=== PATIENT | male | born 1945 | race Caucasian/White ===

== ENCOUNTER 2018-10-07 16:03 | Inpatient (IN) | payer MEDICARE ==
[~2018-10-07] VITALS: Ht 172.7 cm; Wt 115.3 kg
[2018-10-07] MEDS ORDERED: IPRATROPIUM BROMIDE 0.02% 2.5 ML NEB NEB STA (16:13)
[2018-10-07] MEDS ORDERED: METHYLPREDNISOLONE SOD SUCC 125 MG/2ML VIAL IV STA (16:13)
[2018-10-07] MEDS ORDERED: SODIUM CHLORIDE 0.9% 1000ML 1,000 ML IV STA (16:13)
[2018-10-07] MEDS ORDERED: LEVALBUTEROL HCL SOLN NEBU 1.25 MG/3 ML NEB INH ONE (16:15)
[2018-10-07] MEDS ORDERED: MORPHINE SULFATE 2 MG/ML SYR 1ML IV PRN (16:30)
[2018-10-07] MEDS ORDERED: ONDANSETRON HCL INJ 2MG/ML 2ML 2 MG/ML VIAL IV PRN (16:30)
[2018-10-07] MEDS ORDERED: ASPIRIN 81 MG CHEW TAB PO ONE (16:30)
--- NOTE | 2018-10-07 16:33 | NUR ---
Pt spouse states pt took 1 nitrosublingual last night and this am for CP., States CP stared yesterday.
[2018-10-07 16:36] LABS: BASOPHILS # (AUTO) 0.1 (0.0-0.1); BASOPHILS % 0.8 % (0.0-1.0); EOSINOPHILS # (AUTO) 0.4 (0.0-0.4); EOSINOPHILS % 5.3 % (0.0-6.0); HEMATOCRIT 44.2 % (38.2-49.6); HEMOGLOBIN 14.9 g/dL (14.0-18.0); LYMPHOCYTES # (AUTO) 1.2 (1.0-3.2); LYMPHOCYTES % 15.8 % (18.0-39.1); MEAN CORPUSCULAR HEMOGLOBIN 30.7 pg (28-32); MEAN CORPUSCULAR HGB CONC 33.7 g/dL (31-35); MEAN CORPUSCULAR VOLUME 91.1 fL (81-99); MONOCYTES # (AUTO) 0.7 (0.2-0.8); MONOCYTES % 9.3 % (4.4-11.3); NEUTROPHILS # (AUTO) 5.3 (2.1-6.9); NEUTROPHILS % 68.7 % (38.7-80.0); PLATELET COUNT 226 x10e3/uL (140-360); RED BLOOD COUNT 4.85 x10e6/uL (4.3-5.7); RED CELL DISTRIBUTION WIDTH 14.9 % (11.7-14.4)
[2018-10-07 16:49] LABS: INR 1.11; PROTHROMBIN TIME 14.8 seconds (11.9-14.5)
[2018-10-07 16:50] LABS: PARTIAL THROMBOPLASTIN TIME 41.6 seconds (23.8-35.5)
[2018-10-07 16:57] LABS: ALBUMIN 3.7 g/dL (3.5-5.0); ALBUMIN/GLOBULIN RATIO 1.4 (0.8-2.0); CALCIUM 9.3 mg/dL (8.4-10.2); CREATININE, SERUM 1.18 mg/dL (0.72-1.25)
[2018-10-07 17:03] LABS: CREATINE KINASE MB 7.3 ng/mL (0-5.0)
[2018-10-07 17:09] LABS: MAGNESIUM 2.3 MG/DL (1.3-2.1)
--- NOTE | 2018-10-07 17:13 | Diagnostic Imaging Report ---
A single frontal view of the chest. HISTORY: Chest pain, shortness of breath COMPARISON: None available. DISCUSSION: Portable technique, limits sensitivity of the exam. Soft tissue attenuation partially limits sensitivity of the exam. Overlying monitoring leads. A 2.3 x 2.1 cm calcific density projects at the periphery of the left lung base, this may reflect an overlying artifact. Tubes/Lines: Implanted left-sided cardiac device. Lungs and pleura: Mild bibasilar atelectasis versus scarring. No evidence of a consolidative pneumonia or pulmonary alveolar edema. No definite pleural effusion or pneumothorax is identified. Heart and mediastinum: The cardiomediastinal silhouette appears unremarkable. Bones and soft tissues: Appear unremarkable, given this limited exam. IMPRESSION: Mild bibasilar atelectasis versus scarring, superimposed pneumonia or aspiration may be a consideration the appropriate setting. Signed by: Dr. Benton Fine D.O., M.M.M. on 10/07/2018 5:09 PM
[2018-10-07 17:24] LABS: THYROID STIMULATING HORMONE 1.319 uIU/mL (0.350-4.940)
[2018-10-07] MEDS ORDERED: Eliquis PO (17:27)
[2018-10-07] MEDS ORDERED: K DUR10 MEQ PO (17:27)
[2018-10-07] MEDS ORDERED: FUROSEMIDE40 MG PO (17:27)
[2018-10-07] MEDS ORDERED: PROAIR HFA INH8.5 GM IH (17:27)
[2018-10-07] MEDS ORDERED: TIKOSYN500 MCG PO (17:27)
[2018-10-07] MEDS ORDERED: NITROGLYCERIN0.4 MG SL (17:27)
[2018-10-07] MEDS ORDERED: LORATADINE10 MG PO (17:27)
[2018-10-07] MEDS ORDERED: OMEPRAZOLE40 MG PO (17:27)
[2018-10-07] MEDS ORDERED: MAGNESIUM OXID400 MG PO (17:27)
[2018-10-07] MEDS ORDERED: FLUTICASONE PRO16 GM (17:27)
[2018-10-07] MEDS ORDERED: NORCO 10-325 T1 EACH PO (17:27)
[2018-10-07] MEDS ORDERED: AZITHROMYCIN 500MG/NS 250 ML 250 ML IV SCH (17:30)
[2018-10-07] MEDS ORDERED: CEFTRIAXONE SOD 1 GM/NS 50 ML 50 ML IV SCH (17:30)
[2018-10-07] MEDS: FAMOTIDINE 20 MG/2 ML VIAL IV SCH (17:43)
[2018-10-07] MEDS: APIXABAN 5 MG TABLET PO SCH (17:45)
[2018-10-07] MEDS: METOPROLOL TARTRATE 25 MG TAB PO SCH (17:45)
--- NOTE | 2018-10-07 17:50 | NUR ---
TELEMETRY BOX #[id number] APPLIED, TOLERATED WELL. NO SIGNS OF ACUTE DISTRESS NOTED DURING TRIAGE.
[2018-10-07 17:54] LABS: BILIRUBIN,URINE NEGATIVE (NEGATIVE); CLARITY,URINE SL CLOUDY (CLEAR); COLOR,URINE YELLOW (YELLOW); KETONES,URINE TRACE (NEGATIVE); LEUKOCYTE ESTERASE ,URINE NEGATIVE (NEGATIVE); NITRITE,URINE NEGATIVE (NEGATIVE); PROTEIN,URINE DIPSTICK NEGATIVE (NEGATIVE); URINE UROBILINOGEN 1 mg/dL (0.2 - 1)
[2018-10-07 17:55] VITALS: BP 168/89
--- NOTE | 2018-10-07 17:55 | NUR ---
Pt received from ER at this time. Pt is aox4 and able to verbalize needs. Pt admitted for Shortness of breath, asthma and chest pain. Pt denies any chest pain at this time. Pt is also denies SOB on O2 2L/NC. 0 s/s of acute distress noted.
--- NOTE | 2018-10-07 17:55 | NUR ---
TRANSPORTED VIA STRETCHER TO ROOM 286. NO SIGNS OF ACUTE DISTRESS NOTED AT THIS TIME.
[2018-10-07 18:10] LABS: BACTERIA,URINE MANY /HPF; WBC,URINE (MAN) 0-5 /HPF (0-5)
[2018-10-07] MEDS ORDERED: SODIUM CHLORIDE 0.9% 1000ML 1,000 ML ONE (19:35)
[2018-10-07 19:42] VITALS: BP 168/89
--- NOTE | 2018-10-07 21:20 | NUR ---
PHARMACY VERIFIED PT'S OWN HOME MEDICATION TIKOSYN(DOFETILIDE).
[2018-10-07] MEDS: DOFETILIDE 500 MCG PO SCH (21:30)
[2018-10-07 21:58] VITALS: BP 168/89
[2018-10-08] VITALS (8 sets, daily range): BP systolic 142–166; BP diastolic 69–82
[2018-10-08 01:12] LABS: CREATINE KINASE MB 6.2 ng/mL (0-5.0)
[2018-10-08] MEDS: FAMOTIDINE 20 MG/2 ML VIAL IV SCH ×2 (04:58→05:25)
--- NOTE | 2018-10-08 05:15 | NUR ---
PT ACCIDENTALLY PULLED THE IV OUT TO RIGHT AC,CATH TIP NOTED INTACT.NEW IV STARTED TO LEFT HAND 22G.
[2018-10-08] MEDS: METOPROLOL TARTRATE 25 MG TAB PO SCH ×2 (05:21→17:08)
[2018-10-08 06:37] LABS: BASOPHILS % 0.3 % (0.0-1.0); HEMATOCRIT 42.5 % (38.2-49.6); LYMPHOCYTES # (AUTO) 0.8 (1.0-3.2); LYMPHOCYTES % 7.4 % (18.0-39.1); MEAN CORPUSCULAR HEMOGLOBIN 30.4 pg (28-32); MEAN CORPUSCULAR HGB CONC 32.9 g/dL (31-35); MEAN CORPUSCULAR VOLUME 92.2 fL (81-99); MONOCYTES # (AUTO) 0.2 (0.2-0.8); NEUTROPHILS % 89.7 % (38.7-80.0); PLATELET COUNT 213 x10e3/uL (140-360); RED BLOOD COUNT 4.61 x10e6/uL (4.3-5.7); RED CELL DISTRIBUTION WIDTH 14.6 % (11.7-14.4)
--- NOTE | 2018-10-08 06:52 | NUR ---
RECEIVED PATIENT RESTING IN BED. RESPIRATIONS EVEN AND UNLABORED, NO ACUTE DISTRESS NOTED. CALL LIGHT WITHIN REACH. BED IN THE LOWEST POSITION.
--- NOTE | 2018-10-08 07:12 | NUR ---
BEDSIDE SHIFT REPORT GIVEN TO ONCOMING NURSE.PT RESTING IN BED WITH NO S/S OF DISTRESS.
[2018-10-08 07:18] LABS: ALANINE AMINOTRANSFERASE 23 IU/L (0-55); ALBUMIN 3.3 g/dL (3.5-5.0); ALBUMIN/GLOBULIN RATIO 1.2 (0.8-2.0); ALKALINE PHOSPHATASE 61 IU/L (40-150); ANION GAP 14.7 mmol/L (8-16); BLOOD UREA NITROGEN 22 mg/dL (7-26); BUN/CREATININE RATIO 21 (6-25); CARBON DIOXIDE 21 mmol/L (22-29); CHLORIDE 109 mmol/L (98-107); CHOL/HDL RATIO 3.7 (3.9-4.7); CHOLESTEROL 144 MD/DL (0-199); CREATININE, SERUM 1.07 mg/dL (0.72-1.25); EST GLOMERULAR FILTRATION RATE > 60 ML/MIN (60-); GLUCOSE 168 mg/dL (74-118); HDL CHOLESTEROL 39 MG/DL (40-60); LDL CHOLESTEROL 97 MG/DL (60-130); MAGNESIUM 2.2 MG/DL (1.3-2.1); PHOSPHORUS 2.4 MG/DL (2.3-4.7); POTASSIUM 4.7 mmol/L (3.5-5.1); SODIUM 140 mmol/L (136-145); TRIGLYCERIDES 40 MG/DL (0-149)
[2018-10-08] MEDS: DOFETILIDE 500 MCG PO SCH ×2 (08:34→17:08)
[2018-10-08] MEDS: APIXABAN 5 MG TABLET PO SCH ×2 (08:35→17:08)
--- NOTE | 2018-10-08 11:36 | Consultation ---
DATE OF CONSULTATION: 10/08/2018 Cardiology Consultation REASON FOR CONSULTATION: Chest discomfort. HISTORY OF PRESENT ILLNESS: A 73-year-old man with history of morbid obesity, hypertension, and dyslipidemia, chronic and systolic paroxysmal atrial fibrillation on chronic dofetilide therapy as outpatient with regular follow up with Cardiology in [place], where he lives, CAD with remote PCI and status post [place] ICD, presents with complaints of left shoulder discomfort radiating to chest, occurring after mechanical fall while using coremaker floor. He has worsening discomfort with movement/extension of the left shoulder and rotation of trunk. Symptoms are not exacerbated by ambulation or exertion. He denies any syncope. He felt his left shoulder pop and since then, symptoms have resolved with only minimal residual focal tenderness in the left shoulder area. He reports in the past having angina when coronary stent was deployed, at that time his symptoms were exacerbated by exertion and radiating to the interscapular area. He has no reports of similar symptoms at this point in time. This is a very different pattern from what he has experienced before cardiac castillo. EKG shows sinus rhythm with PVCs, incomplete right bundle branch block, nonspecific ST-T wave abnormality and prolonged QT of 545. Chest x-ray shows device in place and suspected atelectasis in the lung jones. On telemetry sinus rhythm. STUDIES: Reviewed. Sodium 140, potassium 4.7, chloride 109, bicarbonate 21, BUN 22, creatinine 1.07, glucose 168. White blood cells 11.1, hemoglobin 14, platelets 213. INR 1.1, PTT 14.8, PTT 41.6. AST 18, ALT 23, and alkaline phosphatase 61, total bilirubin 1. ASSESSMENT: A 73-year-old man with atypical chest pain following mechanical fall associated with shoulder discomfort. Denies new exertional symptoms. 1. Coronary artery disease with history of remote stent. 2. Status post implantable cardioverter-defibrillator. 3. Paroxysmal atrial fibrillation, on chronic dofetilide therapy. 4. Morbid obesity. 5. Hypertension. 6. Dyslipidemia. 7. Lives out of state. RECOMMENDATIONS: 1. The patient has established Cardiology followup as outpatient. 2. Cardiac enzymes ruling out an MD. 3. Avoid QT prolonging drugs. I discontinued azithromycin as patient is on dofetilide. Currently in sinus rhythm. 4. Discontinue Zofran or any other QT prolonging drugs. 5. Continue Eliquis for thromboembolic risk prevention in the setting of atrial fibrillation. 6. Continue metoprolol. 7. Interrogate device. 8. Etiology of symptoms suspect most likely musculoskeletal. He describes a recent coronary angiogram performed approximately 3 months ago at that time with no significant obstructive disease requiring intervention per patient report. He has established followup as outpatient out of state and would like to return for followup there and leave [place] soon. His symptoms have since improved. If on interrogation no significant events and symptoms remain well controlled, can consider further outpatient followup. Roman Mccormack MD AFV/MODL /[id number]
[2018-10-08] MEDS ORDERED: FUROSEMIDE 40 MG TAB PO SCH (17:30)
[2018-10-08] MEDS ORDERED: APIXABAN 5 MG TABLET PO SCH (18:00)
--- NOTE | 2018-10-08 19:20 | NUR ---
REPORT GIVEN TO ONCOMING NURSE. WALKING ROUNDS DONE. PATIENT IS RESTING IN BED. NO ACUTE DISTRESS NOTED. CALL LIGHT WITHIN REACH. BED IN THE LOWEST POSITION.
[2018-10-08] MEDS: ATORVASTATIN 20 MG TAB PO SCH (20:46)
[2018-10-08] MEDS: CEFTRIAXONE SOD 1 GM/NS 50 ML 50 ML IV SCH (20:46)
[2018-10-08] MEDS: FAMOTIDINE 20 MG TAB PO SCH (20:46)
[2018-10-08] MEDS ORDERED: FAMOTIDINE 20 MG TAB PO SCH (21:00)
--- NOTE | 2018-10-08 21:03 | History and Physical ---
CHIEF COMPLAINT: Chest pain, cough, congestion. HISTORY OF PRESENT ILLNESS: A 73-year-old male, morbidly obese, history of CAD in the past, and an AICD with history of arrhythmias, who presents to the ED with complaints of chest pain. This has been ongoing for the last several days prior to arrival to the ER. The patient also endorses some underlying coughing, congestion, but no fever at home. Reports that the chest pain was left-sided, radiates to the left shoulder and arm. 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 He is here visiting family. He reports associated nausea, but no diaphoresis or vomiting. Also, endorses cough, congestion, but no fever at home. Denies any sick contacts. No abdominal pain, nausea, vomiting, or any diarrhea. The patient seen and evaluated at bedside on the medical floor. He is currently doing well with no other issues at this time. His vital signs stable when I evaluated him. Cardiology has already involved . REVIEW OF SYSTEMS: Pertinent positives: Cough, congestion, chest pain. Pertinent negatives: Denies any palpitation, nausea, or vomiting. REVIEW OF SYSTEMS: shortness of breath, cough, congestion, fever, or any other complaints. The rest of the 14-point review of systems have been reviewed with the patient and are negative. ALLERGIES: NO KNOWN DRUG ALLERGIES. HOME MEDICATIONS: He takes: 1. Dofetilide 500 mcg p.o. b.i.d. 2. Furosemide 20 mg daily. 3. Loratadine 10 mg daily. 4. Omeprazole 40 mg daily. 5. Eliquis 5 mg p.o. b.i.d. PAST MEDICAL HISTORY: History of atrial fibrillation, AICD, CAD, heart failure, hypertension. PAST SURGICAL HISTORY: . FAMILY HISTORY: Hypertension and diabetes. SOCIAL HISTORY: No drugs. No alcohol. Does not smoke. Good social support. LABORATORY FINDINGS: Show white count 11.1, hemoglobin 14, hematocrit is 42, platelets of 230. Coagulation; PT 14, INR 1.1, PTT 41. Chemistry, sodium 140, potassium 4.7, chloride 109, bicarb 29, anion gap of 14. BUN is 20, creatinine is 1, glucose is 168, calcium is 9, phosphorus is 2.4. Total bilirubin is 1. LFTs within normal range. CK-MB . Troponin is negative. Total protein 6, albumin 2.3, LDL was 97, lipase was 11 . Urinalysis negative. MICROBIOLOGY: Blood cultures are pending. Urine culture is negative. PRELIMINARY IMAGING STUDIES: Chest x-ray, mild bibasilar atelectasis versus chronic superimposed pneumonia or aspiration. PHYSICAL EXAMINATION: VITAL SIGNS: Temperature is 96.7, pulse 84, respiratory rate 20, blood pressure 147/69, pulse ox 96% on room air on 2 L nasal cannula. GENERAL: Not in acute distress, alert and oriented x3, cooperative on examination. HEENT: Head is normocephalic and atraumatic. Eyes; pupils are equal, round, and reactive to light bilaterally. Extraocular movements intact bilaterally. Throat, no evidence of erythema or exudates in the posterior pharynx. Has poor dentition. NECK: Supple. Good range of motion. PULMONARY: Clear to auscultation bilaterally. No wheezing, no rales, no rhonchi, no crackles appreciated. CARDIOVASCULAR: Positive S1 and S2. No murmurs, rubs, or gallops appreciated. ABDOMEN: Soft and nondistended to palpation. Tender to palpation in the left lower quadrant. Bowel sounds present. MUSCULOSKELETAL: Strength was 5/5 throughout. No evidence of any muscles deficits on examination. No weakness appreciated. NEUROLOGIC: Cranial nerves 2 through 12 are grossly intact. No evidence of any neurological deficits on exam. SKIN: Intact. Warm to touch. Good cap refill. PSYCHIATRIC: Normal affect and mood. EXTREMITIES: No edema. Good range of motion throughout. IMPRESSION: 1. Chest pain, rule out acute coronary syndrome with history of coronary artery disease with AICD. 2. Cough, congestion. Concerning for pneumonia. 3. Hypertension. PLAN: At this time, cardiac enzymes were trended, found to be negative. Continue with cardioprotective medications. Cardiology is following. AICD was interrogated. No acute finding seen or no changes were needed. Discussed case with Cardiology. No further workup needed from Cardiology standpoint. From a medical standpoint, the patient's blood cultures are pending. He is on IV antibiotics, did well on IV Rocephin. The azithromycin was discontinued due to worsening QTc while he is on antiarrhythmic medications. We will continue with Eliquis for DVT prophylaxis. All home medications were resumed. We will continue to monitor very closely. Otherwise, continue same plan of care and monitor the cultures Cardiology. MD LEROY Ramirez/LAURYN /[id number]
[2018-10-08] MEDS ORDERED: METOPROLOL TART50 MG PO (21:08)
[2018-10-08] MEDS ORDERED: LEXAPRO10 MG PO (21:08)
[2018-10-08] MEDS ORDERED: PLAVIX75 MG PO (21:08)
[2018-10-08] MEDS ORDERED: ATORVASTATIN CA10 MG PO (21:08)
[2018-10-09] VITALS (9 sets, daily range): BP systolic 130–154; BP diastolic 61–95
[2018-10-09] MEDS: METOPROLOL TARTRATE 25 MG TAB PO SCH ×2 (05:18→16:21)
[2018-10-09 05:34] LABS: BASOPHILS # (AUTO) 0.1 (0.0-0.1); BASOPHILS % 0.4 % (0.0-1.0); EOSINOPHILS # (AUTO) 0.1 (0.0-0.4); EOSINOPHILS % 0.8 % (0.0-6.0); HEMOGLOBIN 13.6 g/dL (14.0-18.0); LYMPHOCYTES # (AUTO) 1.5 (1.0-3.2); LYMPHOCYTES % 12.6 % (18.0-39.1); MEAN CORPUSCULAR HEMOGLOBIN 30.4 pg (28-32); MEAN CORPUSCULAR HGB CONC 33.2 g/dL (31-35); MEAN CORPUSCULAR VOLUME 91.5 fL (81-99); MONOCYTES # (AUTO) 0.9 (0.2-0.8); MONOCYTES % 7.3 % (4.4-11.3); NEUTROPHILS # (AUTO) 9.2 (2.1-6.9); NEUTROPHILS % 78.6 % (38.7-80.0); PLATELET COUNT 189 x10e3/uL (140-360); RED BLOOD COUNT 4.48 x10e6/uL (4.3-5.7); RED CELL DISTRIBUTION WIDTH 14.7 % (11.7-14.4)
[2018-10-09 05:52] LABS: BLOOD UREA NITROGEN 22 mg/dL (7-26); BUN/CREATININE RATIO 22 (6-25); CALCIUM 8.8 mg/dL (8.4-10.2); CARBON DIOXIDE 25 mmol/L (22-29); CHLORIDE 110 mmol/L (98-107); CREATININE, SERUM 1.02 mg/dL (0.72-1.25); EST GLOMERULAR FILTRATION RATE > 60 ML/MIN (60-); GLUCOSE 108 mg/dL (74-118); SODIUM 142 mmol/L (136-145)
--- NOTE | 2018-10-09 06:50 | NUR ---
RECEIVED PATIENT RESTING IN BED. NO ACUTE DISTRESS NOTED. NO S/S OF PAIN NOTED. CALL LIGHT WITHIN REACH. BED IN THE LOWEST POSITION.
[2018-10-09] MEDS ORDERED: NON-FORMULARY MEDICATION ([Eliquis] 5 MG) PO SCH (09:00)
[2018-10-09] MEDS ORDERED: CLARITIN-D 241 EACH PO (09:26)
[2018-10-09] MEDS: APIXABAN 5 MG TABLET PO SCH ×2 (09:26→16:21)
[2018-10-09] MEDS: LORATADINE 10 MG TAB PO SCH (09:26)
[2018-10-09] MEDS: FAMOTIDINE 20 MG TAB PO SCH ×2 (09:26→21:33)
[2018-10-09] MEDS: DOFETILIDE 500 MCG PO SCH ×2 (09:26→16:21)
[2018-10-09] MEDS: ASPIRIN 81 MG CHEW TAB PO SCH (09:26)
[2018-10-09] MEDS: PANTOPRAZOLE SOD 40 MG TABEC PO SCH (09:26)
[2018-10-09] MEDS: FLUTICASONE PROPIONATE NASAL SPRAY NS SCH (16:21)
--- NOTE | 2018-10-09 19:16 | NUR ---
REPORT GIVEN TO ONCOMING NURSE. PATIENT IS RESTING IN BED. NO ACUTE DISTRESS NOTED. CALL LIGHT WITHIN REACH. BED IN THE LOWEST POSITION.
--- NOTE | 2018-10-09 20:21 | Progress Note ---
DATE: 10/09/2018 Medicine Progress Note SUBJECTIVE: The patient is doing well today with no complaints. PHYSICAL EXAMINATION: VITAL SIGNS: Afebrile. Normotensive. Respiratory rate is good. GENERAL: Not in acute distress. Alert and oriented x3. Cooperative on examination. HEENT: Head; normocephalic, atraumatic. Eyes; pupils are equal, round, and reactive to light bilaterally. Extraocular movements intact bilaterally. Throat; no evidence of erythema or exudates in the posterior pharynx. Has poor dentition. NECK: Supple. Good range of motion. PULMONARY: Clear to auscultation bilaterally. No wheezing, no rales, no rhonchi, no crackles appreciated. CARDIOVASCULAR: Positive S1 and S2. No murmurs, rubs, or gallops appreciated. ABDOMEN: Soft, nondistended, and nontender to palpation. Bowel sounds present. MUSCULOSKELETAL: Strength is 5/5 throughout. No evidence of any muscle deficits on examination. No weakness appreciated. NEUROLOGIC: Cranial nerve II through XII grossly intact. No evidence of any neurological deficits on exam. SKIN: Intact. Warm to touch. Good cap refill. PSYCHIATRIC: Normal affect and mood. EXTREMITIES: No edema. Good range of motion throughout. LABORATORY DATA: White count 11.7, hemoglobin 13.6, hematocrit is 41, platelets of 189. Chemistries, reviewed and stable. Urinalysis was negative. MICROBIOLOGY: Blood cultures negative to-date. Urine cultures were final negative. IMAGING STUDIES: None. IMPRESSION: 1. Chest pain, rule out acute coronary syndrome with history of coronary artery disease with automated implantable xjfukyxcbhjo-ltxicrstlqmoh-apjkmxyjekxn implantable cardioverter-defibrillator normal, chest pain, ruled out and negative. 2. Cough, congestion with underlying pneumonia. 3. Hypertension. PLAN: At this time, cardiac enzymes were negative. AICD was interrogated and found to be normal. Cardiology is following. Continue with antibiotics for underlying pneumonia. We are awaiting for final blood cultures to be at least 48 hours and if they are negative, the patient can be discharged home, hopefully tomorrow. Resume same plan of care. Continue same home medications. Otherwise, the patient has been cleared by Cardiology. Hopefully, if everything is negative tomorrow, discharge home. Jiries S Dahu, MD JSD/MARLENL /[id number]
--- NOTE | 2018-10-09 20:56 | Progress Note ---
DATE: 10/09/2018 Cardiology Progress Note SUBJECTIVE: Denies any chest pain or shortness of breath. Left shoulder discomfort has resolved. Discussed echo and ICD interrogation findings. OBJECTIVE: VITAL SIGNS: Temperature 98 degrees, heart rate 83, blood pressure 154/86, O2 saturation 94%, respiratory rate 22, and BMI 38. GENERAL: In no acute distress, alert. NECK: No JVD. CHEST: Clear to auscultation. CARDIOVASCULAR: Regular rate and rhythm, normal S1, S2. No S3 or S4. ABDOMEN: Soft and nontender. Bowel sounds positive. EXTREMITIES: Trace edema. CARDIOVASCULAR MEDICATIONS: Reviewed. Metoprolol tartrate 25 mg every 12 hours, aspirin 81 mg daily, atorvastatin 40 mg at bedtime, Eliquis 5 mg every 12 hours. STUDIES: Reviewed. Sodium 142, potassium 4, chloride 110, bicarbonate 25, BUN 22, creatinine 1.02, glucose 108. White blood cells 11.7, hemoglobin 13.6, and platelets 189. INR 1.1, PT 14.8, PTT 41.6. AST 18, ALT 23, and alkaline phosphatase 61, total bilirubin 1. ASSESSMENT: 1. A 73-year-old man with paroxysmal atrial fibrillation, on chronic antiarrhythmic therapy and long-term anticoagulation with Eliquis and beta-kelly use, presents with atypical chest and left shoulder discomfort, musculoskeletal pattern, and nonexertional. Symptoms have since resolved, he has been ruled out for myocardial infarction. His ICD has been interrogated and reveals normal function, dual chamber device approximately 14% atrial fibrillation burden. Some occasional rapid ventricular response episodes. Fastest being in the 180s. He had short brief periods of NSVT. He has preserved left ventricular systolic function, on echocardiogram. RECOMMEND: 1. Avoid QT prolonging drugs. 2. Past history of CAD with remote PCI. Continue anti-platelet agents and statin therapy. 3. Continue rest of cardiovascular medications. 4. 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 MD VIVIEN Davalos/LAURYN /[id number]
[2018-10-09] MEDS: ATORVASTATIN 20 MG TAB PO SCH (21:33)
[2018-10-09] MEDS: CEFTRIAXONE SOD 1 GM/NS 50 ML 50 ML IV SCH (21:33)
[2018-10-10 00:06] VITALS: BP 126/83
[2018-10-10 04:52] VITALS: BP 120/80
[2018-10-10] MEDS: METOPROLOL TARTRATE 25 MG TAB PO SCH (05:06)
--- NOTE | 2018-10-10 07:00 | NUR ---
Pt received in bed with eyes open. Aox4 and able to verbalize needs. Denies any pain at this time. 0 s/s of acute distress noted. Denies any SOB a this time.
[2018-10-10 07:49] VITALS: BP 133/90
[2018-10-10 08:00] VITALS: BP 133/90
[2018-10-10] MEDS: FLUTICASONE PROPIONATE NASAL SPRAY NS SCH (08:10)
[2018-10-10] MEDS: PANTOPRAZOLE SOD 40 MG TABEC PO SCH (08:10)
[2018-10-10] MEDS: ASPIRIN 81 MG CHEW TAB PO SCH (08:10)
[2018-10-10] MEDS: DOFETILIDE 500 MCG PO SCH (08:11)
[2018-10-10] MEDS: APIXABAN 5 MG TABLET PO SCH (08:11)
[2018-10-10] MEDS: LORATADINE 10 MG TAB PO SCH (08:11)
[2018-10-10] MEDS: FAMOTIDINE 20 MG TAB PO SCH (08:11)
[2018-10-10 11:50] VITALS: BP 146/106
--- NOTE | 2018-10-10 12:36 | Progress Note ---
DATE: 10/10/2018 Cardiology Progress Note Justen denies any chest discomfort or shortness of breath today. On telemetry review he is predominantly in sinus rhythm with some short bouts of atrial fibrillation and short bouts of paced rhythm. OBJECTIVE: VITAL SIGNS: Reviewed. Temperature 96.1, heart rate 76, blood pressure 133/90, respiratory rate 18, O2 saturation 97%, BMI 38.6. GENERAL: In no acute distress, alert. NECK: No JVD. CHEST: Clear to auscultation. CARDIOVASCULAR: Regular rate and rhythm, normal S1 and S2, systolic ejection murmur. ABDOMEN: Soft and nontender. Morbidly obese. EXTREMITIES: With trace edema. CARDIOVASCULAR MEDICATIONS: Reviewed. 1. Dofetilide 500 mg every 12 hours. 2. Eliquis 5 mg every 12 hours. 3. Metoprolol tartrate 25 mg every 12 hours. 4. Aspirin 81 mg daily. 5. Atorvastatin 40 mg at bedtime. STUDIES: Reviewed. Creatinine is 1.02. White blood cells 11, hemoglobin 13.6, platelets 189. ASSESSMENT: A 73-year-old man with history of paroxysmal atrial fibrillation, and supraventricular tachycardia, preserved left ventricular systolic function, coronary artery disease with remote stents, morbid obesity, presents with left shoulder discomfort and atypical chest pain of musculoskeletal pattern. RECOMMENDATIONS: 1. Continue current cardiovascular medications and avoid any QT prolonging medications. The patient is status post ICD, which has been interrogated. 2. Okay to discharge from a cardiac standpoint with outpatient Cardiology followup at his home town upon discharge. 3. Blood cultures negative x48 hours. MD VIVIEN Davalos/LAURYN /[id number]
[2018-10-10 15:52] VITALS: BP 129/82
[2018-10-10] MEDS ORDERED: AUGMENTIN 875-1 EACH PO (16:32)
--- NOTE | 2018-10-10 17:00 | NUR ---
Pt discharged at this time. Pt verbalized understanding of all discharge instructions and follow up appts. Denies a any pain at this time. 0 s/s of acute distress noted.
--- NOTE | 2018-10-11 02:38 | Discharge Summary ---
FINAL DISCHARGE DIAGNOSES: 1. Atypical chest pain. 2. History of coronary artery disease with AICD-AICD interrogated and was found to be normal. 3. Cough and congestion. 4. Community-acquired pneumonia. 5. Hypertension. CONSULTANTS: Cardiology. VITAL SIGNS: Temperature is 98.1, pulse 75, respirations 18, blood pressure 129/82, pulse ox 98% on 2 L nasal cannula. The patient reports he is on chronic home O2. LABORATORY DATA: Labs show white count was 11.7. PT 14, INR 1.1, PTT 41. Chemistry; sodium 142, potassium 4, chloride 110, bicarbonate 25, anion gap of 11, BUN 20, creatinine 1, glucose is 108, calcium is 8.8, total bilirubin is 1, magnesium 2.2, phosphorus 3.4, calcium is 9. LFTs within normal range. Troponins were all negative. CK 252. Albumin 2.3. LDL was 97. TSH is 1.3. Urinalysis negative. MICROBIOLOGY: Blood cultures greater than 72 hours were negative 2/2. Urine culture negative. IMAGING STUDIES: Chest x-ray shows mild bibasilar atelectasis versus scarring. Superimposed pneumonia or aspiration maybe the consideration in the appropriate setting. HOSPITAL COURSE: This is a 73-year-old male, history of CAD in the past with AICD, comes into the ED with complaints of chest pain requiring Cardiology consultation. While here, cardiac enzymes were found to be negative. AICD was interrogated and found to be normal. The patient continued with cardioprotective medications. Cardiology cleared the patient from their standpoint. No further cardiac workup is needed. 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 He was found to have underlying community-acquired pneumonia on imaging studies. He was started on IV antibiotic therapy while here in the hospital stay. His chest x-ray was consistent with probable pneumonia. The patient improved throughout the hospital course with no issues. Blood cultures were negative. Urine cultures were negative. The patient was discharged on oral Augmentin for completion of his underlying community-acquired pneumonia. On discharge, the patient was doing well, back to normal baseline with no other complaints. The patient was cleared for discharge by all consultants. On the day of discharge, vital signs stable, labs reviewed and stable. The patient was seen, evaluated, and examined thoroughly on the day of discharge. No other complaints. The patient verbalized understanding and agrees with plan of care to follow up accordingly as an outpatient with primary care physician in 1 week and his tax associate attorney in 2 weeks' time. MEDICATIONS: See med reconciliation form including Augmentin 875 mg one tab p.o. b.i.d. x7 more days. DISPOSITION: Home. CONDITION: Stable. DIET: Heart healthy. In the event of any worsening symptoms, the patient was advised to come back to the ED for further evaluation. Discharge summary took greater than 35 minutes. MD LEROY Ramirez/MODL /[id number]
== END 2018-10-10 16:53 | disposition home or self-care (01) | DRG 194 ==
LOC: ER 16:03 → ERHOLD 16:17 → MED/SURG3 17:56
PROVIDERS: ADMIT Internal Medicine; ATTEND Internal Medicine
DX: J18.9 Pneumonia, unspecified organism (principal); I47.1 Supraventricular tachycardia; E66.9 Obesity, unspecified; E78.5 Hyperlipidemia, unspecified; J45.40 Moderate persistent asthma, uncomplicated; I10 Essential (primary) hypertension; I48.0 Paroxysmal atrial fibrillation; I25.10 Atherosclerotic heart disease of native coronary artery without angina pectoris; I49.3 Ventricular premature depolarization; R07.89 Other chest pain; Z99.81 Dependence on supplemental oxygen; Z68.38 Body mass index [BMI] 38.0-38.9, adult; Z95.5 Presence of coronary angioplasty implant and graft; Z95.810 Presence of automatic (implantable) cardiac defibrillator; Z79.02 Long term (current) use of antithrombotics/antiplatelets; Z79.82 Long term (current) use of aspirin
CPT/HCPCS: 36415; 71045; 80048; 80053; 80061; 81001; 82550; 82553; 83690; 83735; 83880; 84100; 84443; 84484; 85025; 85610; 85730; 87040; 87086; 93005; 93306; 99284; J0456; J0696; J2930; J7030